=== PATIENT | female | born 1990 | race African-American/Black ===

== ENCOUNTER 2020-06-23 15:50 | Emergency (ER) | payer OTHER ==
[~2020-06-23] VITALS: Ht 172.7 cm; Wt 100.0 kg
[2020-06-23 15:53] VITALS: BP 156/93
[2020-06-23] MEDS ORDERED: LEVO750T68 PO (16:06)
[2020-06-23] MEDS ORDERED: BUPR100 PO (16:06)
[2020-06-23] MEDS ORDERED: IBUP-2071 PO (16:06)
[2020-06-23] MEDS ORDERED: QUET25TA PO (16:06)
[2020-06-23] MEDS ORDERED: LAMO100 PO (16:06)
[2020-06-23] MEDS ORDERED: CLON.5 PO (16:06)
[2020-06-23] MEDS ORDERED: BUPR-93 PO (16:09)
== END 2020-06-23 18:03 | disposition home or self-care (01) ==
LOC: EMS 15:50
DX: B35.6 Tinea cruris (principal); F31.9 Bipolar disorder, unspecified; F41.9 Anxiety disorder, unspecified
CPT/HCPCS: Z7502